=== PATIENT | male | born 1965 | race Caucasian/White ===

== ENCOUNTER 2016-09-11 17:33 | Emergency (ER) | payer BC ==
[2016-09-11 18:12] VITALS: BP 129/71
--- NOTE | 2016-09-11 19:03 | UC ---
General HPI - HPI Summary HPI Summary: Patient has had on and off fever the past few days. sore throat and nasal congestion. - History of Current Complaint Chief Complaint: UCGeneralIllness Stated Complaint: SORE THROAT DIZZY FEVER Time Seen by Provider: 09/11/16 18:17 Hx Obtained From: Patient Onset/Duration: Sudden Onset, Lasting Days Timing: Constant Onset Severity: Moderate Current Severity: Moderate Associated Signs & Symptoms: Positive: Fever - Allergy/Home Medications Allergies/Adverse Reactions: Allergies Allergy/AdvReac Type Severity Reaction Status Date / Time Lisinopril Allergy Severe Swelling Verified 09/11/16 18:05 Of Face,Lips,& Throat Home Medications: Home Medications FLUoxetine CAP* [Prozac CAP*] 20 mg PO DAILY 09/11/16 [History Confirmed ] PMH/Surg Hx/FS Hx/Imm Hx Previously Healthy: Yes - Surgical History Surgical History: None - Family History Known Family History: Positive: None Negative: Cardiac Disease, Hypertension - Social History Alcohol Use: None Substance Use Type: None Smoking Status (MU): Former Smoker When Did the Patient Quit Smoking/Using Tobacco: 2007 Review of Systems Constitutional: Fever, Fatigue Skin: Negative Eyes: Negative ENT: Sore Throat, Ear Ache, Nasal Discharge Respiratory: Cough Cardiovascular: Negative Gastrointestinal: Negative Genitourinary: Negative Motor: Negative Neurovascular: Negative Musculoskeletal: Negative Neurological: Headache Psychological: Negative All Other Systems Reviewed And Are Negative: Yes Physical Exam Triage Information Reviewed: Yes Appearance: Well-Nourished, Ill-Appearing, Pain Distress Vital Signs: Initial Vital Signs Temp 98.2 F 09/11/16 18:07 Pulse 118 09/11/16 18:07 Resp 20 09/11/16 18:07 BP 129/71 09/11/16 18:07 Pulse Ox 97 09/11/16 18:07 Vital Signs Reviewed: Yes Eye Exam: Normal Eyes: Positive: Conjunctiva Clear ENT: Positive: Pharyngeal erythema, TMs normal, Tonsillar swelling Dental Exam: Normal Neck exam: Normal Neck: Positive: Supple, Nontender, No Lymphadenopathy Respiratory Exam: Normal Respiratory: Positive: Chest non-tender, Lungs clear, Normal breath sounds Cardiovascular: Positive: No Murmur, Pulses Normal, Tachycardia Abdominal Exam: Normal Abdomen Description: Positive: Nontender, No Organomegaly, Soft Bowel Sounds: Positive: Present Musculoskeletal Exam: Normal Musculoskeletal: Positive: Strength Intact, ROM Intact, No Edema Neurological Exam: Normal Neurological: Positive: Alert, Muscle Tone Normal Psychological Exam: Normal Skin Exam: Normal Course/Dx - Course Course Of Treatment: hx obtained, exam performed, meds reviewed, ekg obtained, due to tachycardia, and profuse sweating. ekg shows sinus tachycardia, reviewed with Dr calle. - Differential Dx - Multi-Symptom Provider Diagnoses: sinusitis. fever Discharge - Discharge Plan Condition: Stable Disposition: HOME Prescriptions: Azithromyxin GRIS (NF) [Z-Gris (Zithromax) 250 mg tabs #6] 2 tab PO .TODAY, THEN 1 DAILY #6 tab Patient Education Materials: Sinusitis (ED) Referrals: Non Staff,Doctor [Primary Care Provider] - Additional Instructions: 1. take the medication as prescribed. 2. Increase fluid intake and get plenty of rest. 3. ibuprofen or tylenol for pain and fever. 4. Follow up if fever persists.
== END 2016-09-11 19:18 | disposition home or self-care (01) ==
LOC: UCCORT 17:33
DX: J32.9 Chronic sinusitis, unspecified (principal); R50.9 Fever, unspecified
CPT/HCPCS: 87651; 93005; 99211; G0463